=== PATIENT | female | born 1970 | race Caucasian/White ===

== ENCOUNTER 2020-07-23 12:00 | Emergency (ER) | payer OTHER ==
[2020-07-23 12:13] VITALS: BP 202/116
[2020-07-23] MEDS ORDERED: LIDOCAINE 1% 2 ML VIAL MC ONE (13:17)
[2020-07-23] MEDS ORDERED: metroNIDAZOLE 250 MG TABLET PO STA (13:17)
[2020-07-23] MEDS ORDERED: cefTRIAXone 250 MG VIAL IM STA (13:17)
[2020-07-23] MEDS ORDERED: AZITHROMYCIN 250 MG TABLET PO STA (13:17)
[2020-07-23] MEDS ORDERED: RALTEGRAVIR 400 MG TABLET PO STA (13:19)
[2020-07-23] MEDS ORDERED: lamiVUDine/ZIDOVUDINE 150 MG/300 MG TABLET PO STA (13:19)
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
[2020-07-23 13:38] LABS: HGB - HEMOGLOBIN 13.5 g/dL (12.0-16.0); MEAN CORPUSCULAR HEMOGLOBIN 30.8 pg (27.0-31.0); MEAN CORPUSCULAR HGB CONC 33.6 g/dL (32.0-36.0); MEAN CORPUSCULAR VOLUME 91.8 fL (81.0-99.0); MEAN PLATELET VOLUME 9.1 fL (7.9-10.8); RED BLOOD COUNT 4.38 10^6/uL (4.20-5.40); RED CELL DISTRIBUTION WIDTH 12.8 % (12.0-15.0); WHITE BLOOD COUNT 10.8 x10^3/uL (4.8-10.8)
[2020-07-23 13:51] LABS: ALBUMIN 4.3 g/dL (3.2-5.5); ALBUMIN/GLOBULIN RATIO 1.4 (1.0-2.2); BILIRUBIN,TOTAL 0.3 mg/dL (0.2-1.0); CALCIUM 9.7 mg/dL (8.5-10.3); CREATININE 0.9 mg/dL (0.4-1.0); TOTAL PROTEIN 7.3 g/dL (6.7-8.2)
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
[2020-07-23 15:06] LABS: BILIRUBIN,URINE NEGATIVE (NEGATIVE); GLUCOSE, URINE (UA) NEGATIVE (NEGATIVE); KETONES,URINE (UA) NEGATIVE (NEGATIVE); LEUKOCYTE ESTERASE, URINE NEGATIVE (NEGATIVE); NITRITE,URINE NEGATIVE (NEGATIVE); OCCULT BLOOD,URINE NEGATIVE (NEGATIVE); PH,URINE 7.5 PH (5.0-7.5); PROTEIN,URINE NEGATIVE (NEGATIVE); UROBILINOGEN,URINE 0.2 (NORMAL) E.U./dL (NORMAL)
[2020-07-23 15:07] LABS: CLARITY,URINE CLEAR (CLEAR)
[2020-07-25 07:12] LABS: HIV AG/AB 4TH GEN NON-REACTIVE (NON-REACTIVE)
[2020-07-25 13:00] LABS: HEPATITIS C ANTIBODY NON-REACTIVE (NON-REACTIVE)
== END 2020-07-23 16:03 | disposition short-term general hospital (02) ==
LOC: ED 12:00
DX: T76.21XA Adult sexual abuse, suspected, initial encounter (principal); R07.81 Pleurodynia
CPT/HCPCS: 36415; 71111; 80053; 81003; 85027; 86317; 86803; 87389; 96372; 99283; 99285; A9270; 81001; 87086

== ENCOUNTER 2020-11-06 14:11 | Outpatient (CLI) | payer OTHER | END 2020-11-06 23:59 | disposition home or self-care (01) | LOC: LAB.N 14:11 | PROVIDERS: ATTEND Physician Assistant Medical | DX: J01.90 Acute sinusitis, unspecified (principal); Z20.822 Contact with and (suspected) exposure to COVID-19 | CPT/HCPCS: 87275; 87276 ==